=== PATIENT | male | born 1990 | race Caucasian/White ===

== ENCOUNTER 2018-10-21 18:23 | Emergency (ER) | payer MEDICAID ==
[~2018-10-21] VITALS: Ht 172.7 cm; Wt 97.0 kg
[~2018-10-21 18:23] MED LIST: ADV50250 IH; CLON-527 PO; GABA-338 PO; KEP500T PO; MIRT15TA PO; PALI6TAB3 PO
[2018-10-21 18:26] VITALS: BP 154/100
[2018-10-21] MEDS ORDERED: albuterol 2.5 MG/3 ML nebule NEB ONE (19:15)
[2018-10-21] MEDS ORDERED: ipratropium/albuterol 3ml nebule NEB ONE (19:15)
--- NOTE | 2018-10-21 19:15 | NUR ---
PAGE SENT TO RT AT THIS TIME.
[2018-10-21] MEDS ORDERED: albuterol 2.5 MG/3 ML nebule ONE (19:24)
--- NOTE | 2018-10-21 19:25 | NUR ---
CALL TO INITIATE PSYCH CONSULT AT THIS TIME.
[2018-10-21 19:26] LABS: BASOPHILS % (AUTO) 0.3 % (0-1); EOSINOPHILS # (AUTO) 0.1 X10'3 (0-0.9); EOSINOPHILS % (AUTO) 0.9 % (0-6); HEMATOCRIT 41.8 % (42.0-52.0); HEMOGLOBIN 14.2 g/dl (14.0-17.9); LYMPHOCYTES % (AUTO) 21.2 % (21-51); MEAN CORPUSCULAR HEMOGLOBIN 31.5 PG (27.0-31.0); MEAN CORPUSCULAR HGB CONC 33.9 % (33.0-36.5); MEAN PLATELET VOLUME 9.5 FL (7.4-10.4); MONOCYTES # (AUTO) 0.8 X10'3 (0-0.9); MONOCYTES % (AUTO) 8.6 % (2-12); NEUTROPHILS # (AUTO) 6.5 X10'3 (1.8-7.7); PLATELET COUNT 288 X10'3 (140-440); RED CELL DISTRIBUTION WIDTH 12.7 % (11.5-14.5); WHITE BLOOD COUNT 9.4 X10'3 (4.5-11.0)
[2018-10-21] MEDS ORDERED: predniSONE 20 mg tablet PO ONE (19:35)
[2018-10-21 19:43] LABS: ALANINE AMINOTRANSFERASE 31 U/L (12-78); ALBUMIN 3.5 G/DL (3.4-5.0); ALBUMIN/GLOBULIN RATIO 1.1 (1.1-1.5); ALKALINE PHOSPHATASE 95 IU/L (46-116); ANION GAP 9 (8-16); ASPARTATE AMINO TRANSFERASE 17 U/L (10-37); BILIRUBIN,TOTAL 0.7 MG/DL (0.1-1.0); BLOOD UREA NITROGEN 10 MG/DL (7-18); BUN/CREATININE RATIO 10.4 (5.4-32.0); CALCIUM 8.3 MG/DL (8.5-10.1); CHLORIDE 105 MMOL/L (99-107); CREATININE 0.96 MG/DL (0.60-1.10); GLUCOSE 153 MG/DL (70-104); POTASSIUM 3.6 MMOL/L (3.5-5.1); SODIUM 144 MMOL/L (135-145); TOTAL CARBON DIOXIDE 29.6 MMOL/L (24-32); TOTAL PROTEIN 6.8 G/DL (6.4-8.2); eGFR > 90 ML/MIN
[2018-10-21 19:45] LABS: URINE AMPHETAMINE SCREEN POSITIVE (Neg); URINE BARBITUATE SCREEN NEGATIVE (Neg); URINE BENZODIAZEPINES SCREEN NEGATIVE (Neg); URINE CANNABINOID SCREEN POSITIVE (Neg); URINE COCAINE SCREEN NEGATIVE (Neg); URINE METHADONE SCREEN NEGATIVE (Neg); URINE OPIATE SCREEN NEGATIVE (Neg); URINE PHENCYCLIDINE SCREEN NEGATIVE (Neg)
[2018-10-21 19:53] LABS: ETHANOL < 0.010 GM/DL (0.0-0.010)
--- NOTE | 2018-10-22 00:03 | NUR ---
call from telepsych md for pt. report. tele in room, pt. waiting for interview.
--- NOTE | 2018-10-22 00:39 | NUR ---
Telepsyche , Dr Zuleta recommendation to DC pt. d/t he believes he is malingering. will send report.
[2018-10-22] MEDS ORDERED: predniSONE 20 mg tablet PO SCH (07:00)
== END 2018-10-22 01:35 ==
LOC: ER 18:25
DX: R45.851 Suicidal ideations (principal); J45.901 Unspecified asthma with (acute) exacerbation; F15.10 Other stimulant abuse, uncomplicated; F32.9 Major depressive disorder, single episode, unspecified; F17.200 Nicotine dependence, unspecified, uncomplicated; Z88.1 Allergy status to other antibiotic agents; Z88.2 Allergy status to sulfonamides; Z88.0 Allergy status to penicillin; Z88.6 Allergy status to analgesic agent; Z88.8 Allergy status to other drugs, medicaments and biological substances; Z79.899 Other long term (current) drug therapy; Z59.0 Homelessness; Z56.0 Unemployment, unspecified
CPT/HCPCS: 36415; 71045; 80053; 80305; 80320; 84443; 85025; 94640; 94760; 99285; J7512

== ENCOUNTER 2019-03-29 17:19 | Emergency (ER) | payer MEDICAID, OTHER ==
[~2019-03-29] VITALS: Ht 172.7 cm; Wt 92.7 kg
--- NOTE | 2019-03-29 19:00 | NUR ---
Pt was placed on a 5150 on 03/29/19 by [facility]. Pt reports he was homeless living in [facility], when 3 weeks ago he came to [place] to visit his father who is also homeless. They had been sleeping in [facility] and were getting into aruements. His father called the sales correspondence clerk and accused him of stealing a phone. Pt began having homicidal ideations about killing his father along with suicidal ideations. The sales correspondence clerk came and dismissed the situation between the father and pt, and pt decided to walk from [place] to [place] and presnt to [facility] to seek help. He reports he has been off of his medications since 03/22/19. He reports that he cannot get his medications here because his SSI has not been transfered to this [facility]. Pt states he is still having homical ideations towards his father with a plan. "I was going to choke him to and break his neck." "I am just laying here thinking of all the different ways I could choke him." PT states he is still feeling suicidal but has no plan.
[2019-03-29 19:16] LABS: CLARITY,URINE SLIGHTLY CLOUDY (Clear); GLUCOSE, URINE NEGATIVE (Neg); KETONES,URINE >=80 mg/dl (Neg); LEUKOCYTE ESTERASE ,URINE NEGATIVE (Neg); NITRITES, URINE NEGATIVE (Neg); OCCULT BLOOD,URINE NEGATIVE (Neg); PROTEIN,URINE 100 mg/dl (Neg)
[2019-03-29 19:20] LABS: COLOR,URINE DARK YELLOW (Yellow); UA COLLECTION TYPE NON-SPECIFIED
[2019-03-29 19:21] LABS: BASOPHILS % (AUTO) 0.2 % (0-1); EOSINOPHILS % (AUTO) 0.1 % (0-6); HEMATOCRIT 41.8 % (42.0-52.0); HEMOGLOBIN 14.1 g/dl (14.0-17.9); LYMPHOCYTES # (AUTO) 1.4 X10'3 (1.1-4.8); MEAN CORPUSCULAR HEMOGLOBIN 31.6 PG (27.0-31.0); MEAN CORPUSCULAR HGB CONC 33.8 g/dL (33.0-36.5); MEAN CORPUSCULAR VOLUME 93.6 FL (78-98); MEAN PLATELET VOLUME 10.5 FL (7.4-10.4); MONOCYTES # (AUTO) 0.9 X10'3 (0-0.9); MONOCYTES % (AUTO) 8.3 % (2-12); NEUTROPHILS % (AUTO) 79.4 % (42-75); PLATELET COUNT 227 X10'3 (140-440); RED BLOOD COUNT 4.46 X10'6 (4.70-6.10); RED CELL DISTRIBUTION WIDTH 12.8 % (11.5-14.5); WHITE BLOOD COUNT 11.4 X10'3 (4.5-11.0)
[2019-03-29 19:23] LABS: URINE AMPHETAMINE SCREEN NEGATIVE (Neg); URINE BARBITUATE SCREEN NEGATIVE (Neg); URINE BENZODIAZEPINES SCREEN NEGATIVE (Neg); URINE CANNABINOID SCREEN POSITIVE (Neg); URINE COCAINE SCREEN NEGATIVE (Neg); URINE METHADONE SCREEN NEGATIVE (Neg); URINE OPIATE SCREEN NEGATIVE (Neg); URINE PHENCYCLIDINE SCREEN NEGATIVE (Neg)
[2019-03-29 19:36] LABS: MUCUS STRANDS MANY /LPF (Neg); SQUAMOUS EPITHELIAL CELL,UR MANY /LPF (FEW)
[2019-03-29 19:36] LABS: ALANINE AMINOTRANSFERASE 21 U/L (12-78); ALBUMIN 3.8 G/DL (3.4-5.0); ALBUMIN/GLOBULIN RATIO 1.2 (1.1-1.5); ALKALINE PHOSPHATASE 94 IU/L (46-116); ANION GAP 7 (8-16); ASPARTATE AMINO TRANSFERASE 13 U/L (10-37); BILIRUBIN,TOTAL 0.7 MG/DL (0.1-1.0); BLOOD UREA NITROGEN 13 MG/DL (7-18); BUN/CREATININE RATIO 12.5 (5.4-32.0); CHLORIDE 106 MMOL/L (99-107); CREATININE 1.04 MG/DL (0.60-1.10); ETHANOL < 0.010 GM/DL (0.0-0.010); GLUCOSE 112 MG/DL (70-104); SODIUM 140 MMOL/L (135-145); TOTAL CARBON DIOXIDE 26.6 MMOL/L (24-32); TOTAL PROTEIN 6.9 G/DL (6.4-8.2); eGFR 84 ML/MIN
[2019-03-29 19:37] LABS: BACTERIA,URINE 2+ /HPF (Neg); RBC,URINE 0-2 /HPF (0-2); WBC,URINE 0-4 /HPF (0-4)
[2019-03-29] MEDS ORDERED: VENL150C2 PO (20:25)
[2019-03-29] MEDS ORDERED: CARI3CAP PO (20:25)
[2019-03-29] MEDS ORDERED: GABA-532 PO (20:25)
[2019-03-29] MEDS ORDERED: ESZO3TAB66 PO (20:25)
[2019-03-29] MEDS ORDERED: CLON-527 PO (20:25)
--- NOTE | 2019-03-29 21:30 | NUR ---
Karissa report given to [facility] department due to homicidal ideation with a plan.
--- NOTE | 2019-03-30 | NUR ---
Pt is sleepin in bed breaths even and unlabored.
--- NOTE | 2019-03-30 02:00 | NUR ---
Pt is asleep on back, breathing unlabored, no signs or symptoms of distress observed.
--- NOTE | 2019-03-30 04:00 | NUR ---
Pt is resting quietly on L side, no signs or syptoms of distress at this time.
[2019-03-30 05:46] VITALS: BP 106/63
--- NOTE | 2019-03-30 06:35 | NUR ---
Patient sleeping supine. No distress observed. Continue to monitor.
--- NOTE | 2019-03-30 08:05 | NUR ---
Patient eating. No distress observed. Continue to monitor.
--- NOTE | 2019-03-30 10:00 | NUR ---
Patient awake and reclining in bed. No distress observed. Continue to monitor.
--- NOTE | 2019-03-30 12:43 | NUR ---
Patient sitting up in bed. No distress observed. Continue to monitor.
--- NOTE | 2019-03-30 13:14 | NUR ---
pt is being visited by registration, he is calm and cooperative with them
[2019-04-05] MEDS ORDERED: VENL75CA61 PO (11:31)
[2019-04-05] MEDS ORDERED: BUS15T PO (11:31)
[2019-04-05] MEDS ORDERED: MIRT15TA8 PO (11:31)
[2019-04-05] MEDS ORDERED: GABA300C PO (11:31)
== END 2019-03-30 13:31 | disposition home or self-care (01) ==
LOC: ER 17:20
DX: R45.851 Suicidal ideations (principal); R45.850 Homicidal ideations; J45.909 Unspecified asthma, uncomplicated; F31.9 Bipolar disorder, unspecified; F15.90 Other stimulant use, unspecified, uncomplicated; F17.200 Nicotine dependence, unspecified, uncomplicated; Z98.890 Other specified postprocedural states; Z59.0 Homelessness; Z56.0 Unemployment, unspecified; Z88.1 Allergy status to other antibiotic agents; Z88.2 Allergy status to sulfonamides; Z88.0 Allergy status to penicillin; Z88.6 Allergy status to analgesic agent; Z88.8 Allergy status to other drugs, medicaments and biological substances; Z79.899 Other long term (current) drug therapy
CPT/HCPCS: 36415; 80053; 80305; 80320; 81001; 85025; 99283; 99285

== ENCOUNTER 2019-04-08 20:46 | Emergency (ER) | payer OTHER ==
[~2019-04-08] VITALS: Ht 172.7 cm; Wt 85.0 kg
[~2019-04-08 20:46] MED LIST changes: -ADV50250 IH; +BUS15T PO; -CLON-527 PO; -GABA-338 PO; +GABA300C PO; -KEP500T PO; -MIRT15TA PO; +MIRT15TA8 PO; -PALI6TAB3 PO; +VENL150C2 PO; +VENL75CA61 PO
--- NOTE | 2019-04-08 21:45 | NUR ---
The patient is a 28 year old male who was brought in by [place] [employer] for a mental health evaluation as a voluntary patient. The patient had been picked up at the [facility] where he was been camping with his father who is also homeless. He and his father had been fighting and the patient made suicidal statements to run into traffic. The patient presented to the ER cooperative but tearful and upset. He denies drug or etoh abuse. The patient was discharged from [facility] on the and he reports he went to pick remover his medications at [facility] but was told his medical was no longer active. He reports he is having frequent auditory hallucinations that are laughing at him, making derogatory statements and telling him to kill himself. The patient's discharge diagnosis was bipolar 1 disorder, depressed, severe and OMER. The patient reports he receives SSI. He denies HI. [facility] made aware that he is in the ER
[2019-04-08] MEDS ORDERED: LORazepam 1 MG tablet PO ONE (21:55)
[2019-04-08 22:09] LABS: CLARITY,URINE CLEAR (Clear); COLOR,URINE YELLOW (Yellow); GLUCOSE, URINE NEGATIVE (Neg); KETONES,URINE TRACE mg/dl (Neg); LEUKOCYTE ESTERASE ,URINE NEGATIVE (Neg); NITRITES, URINE NEGATIVE (Neg); OCCULT BLOOD,URINE NEGATIVE (Neg); PH,URINE 5.5 (4.8-8.0); PROTEIN,URINE NEGATIVE (Neg); UROBILINOGEN,URINE 0.2 E.U/dL (0.2-1.0)
[2019-04-08 22:13] LABS: BASOPHILS % (AUTO) 0.1 % (0-1); EOSINOPHILS % (AUTO) 0 % (0-6); HEMATOCRIT 40.6 % (42.0-52.0); HEMOGLOBIN 13.6 g/dl (14.0-17.9); LYMPHOCYTES # (AUTO) 1.5 X10'3 (1.1-4.8); LYMPHOCYTES % (AUTO) 13.3 % (21-51); MEAN CORPUSCULAR HEMOGLOBIN 31.7 PG (27.0-31.0); MEAN CORPUSCULAR HGB CONC 33.5 g/dL (33.0-36.5); MEAN CORPUSCULAR VOLUME 94.8 FL (78-98); MEAN PLATELET VOLUME 10.1 FL (7.4-10.4); MONOCYTES # (AUTO) 1.1 X10'3 (0-0.9); NEUTROPHILS # (AUTO) 8.5 X10'3 (1.8-7.7); NEUTROPHILS % (AUTO) 76.6 % (42-75); PLATELET COUNT 220 X10'3 (140-440); RED BLOOD COUNT 4.29 X10'6 (4.70-6.10); RED CELL DISTRIBUTION WIDTH 12.7 % (11.5-14.5); WHITE BLOOD COUNT 11.1 X10'3 (4.5-11.0)
[2019-04-08 22:14] LABS: UA COLLECTION TYPE VOIDED
[2019-04-08 22:21] LABS: URINE AMPHETAMINE SCREEN NEGATIVE (Neg); URINE BARBITUATE SCREEN NEGATIVE (Neg); URINE BENZODIAZEPINES SCREEN NEGATIVE (Neg); URINE CANNABINOID SCREEN POSITIVE (Neg); URINE COCAINE SCREEN NEGATIVE (Neg); URINE METHADONE SCREEN NEGATIVE (Neg); URINE OPIATE SCREEN NEGATIVE (Neg); URINE PHENCYCLIDINE SCREEN NEGATIVE (Neg)
[2019-04-08 22:34] LABS: ALANINE AMINOTRANSFERASE 22 U/L (12-78); ALBUMIN 3.4 G/DL (3.4-5.0); ALBUMIN/GLOBULIN RATIO 1.1 (1.1-1.5); ALKALINE PHOSPHATASE 94 IU/L (46-116); ANION GAP 7 (8-16); ASPARTATE AMINO TRANSFERASE 12 U/L (10-37); BILIRUBIN,TOTAL 0.3 MG/DL (0.1-1.0); BLOOD UREA NITROGEN 15 MG/DL (7-18); CALCIUM 8.4 MG/DL (8.5-10.1); CHLORIDE 109 MMOL/L (99-107); CREATININE 0.75 MG/DL (0.60-1.10); GLUCOSE 96 MG/DL (70-104); POTASSIUM 3.9 MMOL/L (3.5-5.1); SODIUM 144 MMOL/L (135-145); TOTAL CARBON DIOXIDE 28.1 MMOL/L (24-32); TOTAL PROTEIN 6.4 G/DL (6.4-8.2); eGFR > 90 ML/MIN
[2019-04-08 22:45] LABS: ETHANOL < 0.010 GM/DL (0.0-0.010)
--- NOTE | 2019-04-08 23:36 | NUR ---
The patient appears to be asleep
--- NOTE | 2019-04-09 01:04 | NUR ---
The patient appears to be asleep
--- NOTE | 2019-04-09 03:04 | NUR ---
The patient appears to be asleep
[2019-04-09] MEDS ORDERED: VENL75TA90 PO (09:40)
[2019-04-09] MEDS ORDERED: BUSP15TA12 PO (09:42)
[2019-04-09] MEDS ORDERED: GABA-532 PO (09:45)
[2019-04-09] MEDS ORDERED: MIRT-66 PO (09:46)
[2019-04-09] MEDS: busPIRone 15mg tablet PO SCH ×2 (13:14→20:18)
[2019-04-09] MEDS: gabapentin 300mg capsule PO SCH ×2 (13:14→20:18)
--- NOTE | 2019-04-09 18:30 | NUR ---
Assumed care of pt., he is sitting up eating dinner at this time. Appears calm and rr/even and unlabored.
[2019-04-09] MEDS: mirtazapine 15mg tablet PO SCH (20:18)
--- NOTE | 2019-04-09 20:30 | NUR ---
Pt. compliant with all medications, presents as depressed with flat affect. He continues to report S/I with a plan to jump in front of traffic. He also reports command A/H that tell him to kill himself which have gotten worse since he had not been taking his medications. Pt. states when he left [facility], he went to [facility] to have his prescriptions filled, however he was told that his Medi-Zack was not active so he was unable to obtain his medications. Pt. went back to live with his dad in [facility], however his dad left and he is now homeless again. Pt. does not know where his father is, states, "I walked out of the shower and the trailer was gone." He plans to possibly go live with his mother in [place].
--- NOTE | 2019-04-09 21:21 | NUR ---
Obtained new order from YOLANDA Freeman for [facility] consult. Per pt. when he went to poultry picker his medications at [facility] upon recent D/C from [facility], he was told that his Medical is inactive and was unable to obtain medications. Addendum: 04/10/19 at 0026 by HUI Elisha
--- NOTE | 2019-04-09 22:45 | NUR ---
Pt. sleeping at this time, laying on rt side, appears to be resting comfortably.
--- NOTE | 2019-04-10 00:37 | NUR ---
Pt. continues to sleep, laying on his left side at this time, rr even and unlabored.
--- NOTE | 2019-04-10 02:33 | NUR ---
Pt. sleeping on his left side, will continue to monitor.
--- NOTE | 2019-04-10 04:32 | NUR ---
Pt. sleeping on rt. side, rr even and ulabored.
--- NOTE | 2019-04-10 06:01 | NUR ---
Pt. continues to sleep, appears to be resting comfortably, will continue to monitor.
--- NOTE | 2019-04-10 06:31 | NUR ---
Assumed care of client. Client aslepp on right side. Respirations regular and in no apparent distress.
[2019-04-10] MEDS: gabapentin 300mg capsule PO SCH ×3 (08:21→20:05)
[2019-04-10] MEDS: venlafaxine XR 75mg capsule (Q24H) PO SCH (08:21)
[2019-04-10] MEDS: busPIRone 15mg tablet PO SCH ×3 (08:21→20:05)
--- NOTE | 2019-04-10 08:31 | NUR ---
Patient is awake and is eating breakfast
--- NOTE | 2019-04-10 08:36 | NUR ---
Patient up to bathroom
--- NOTE | 2019-04-10 09:55 | NUR ---
Client asleep on right side in no apparent distress. Respirations are even and unlabored.
--- NOTE | 2019-04-10 10:25 | NUR ---
Patient up to the bathroom to brush his teeth.
--- NOTE | 2019-04-10 11:49 | NUR ---
Patient is lying on his back and is awake.
--- NOTE | 2019-04-10 13:18 | NUR ---
Client up in bed eating lunch
--- NOTE | 2019-04-10 13:51 | NUR ---
Pt up to the restroom
--- NOTE | 2019-04-10 16:29 | NUR ---
Pt awake and reading
--- NOTE | 2019-04-10 17:54 | NUR ---
Pt awake and sitting up in bed with his arms crossed.
[2019-04-10] MEDS: mirtazapine 15mg tablet PO SCH (20:05)
[2019-04-11 07:14] VITALS: BP 120/79
[2019-04-11] MEDS: gabapentin 300mg capsule PO SCH ×2 (08:02→12:29)
[2019-04-11] MEDS: venlafaxine XR 75mg capsule (Q24H) PO SCH (08:02)
[2019-04-11] MEDS: busPIRone 15mg tablet PO SCH ×2 (08:02→12:29)
--- NOTE | 2019-04-11 09:00 | NUR ---
Pt lying in bed. Up for breakfast and bathroom. Pt calm and interactive.
--- NOTE | 2019-04-11 09:00 | NUR ---
Note arline in EDM - 04/11/19 at 0908 by DAYRON Pt lying in bed with eyes closed. Pt in no distress. When questioned, pt stated he continues to have S.I. and H.I. and is experiencing aud. castellanos telling him so. Pt says he feels safe at the moment.
--- NOTE | 2019-04-11 11:00 | NUR ---
Pt resting quietly in bed after talking with mother for awhile. Pt voices desire to get placement somewhere. Preferably [facility].
--- NOTE | 2019-04-11 13:00 | NUR ---
Pt is upset that he has not been seen and that placement has not been found yet.
--- NOTE | 2019-04-11 15:00 | NUR ---
Pt was seen briefly by [facility] and that he will be reevaluated tomorrow when his 72 hour hold is . Pt having intermittent flare ups of agitation.
--- NOTE | 2019-04-11 16:55 | NUR ---
Pt became verbally agitated and hostile toward staff, but was able to calm himself once left alone and limits were set. Pt seen again by [facility] and it was determined that he did not meet 5150 criteria.
== END 2019-04-11 17:12 ==
LOC: ER 20:46
DX: F32.9 Major depressive disorder, single episode, unspecified (principal); J45.909 Unspecified asthma, uncomplicated; F41.9 Anxiety disorder, unspecified; F12.90 Cannabis use, unspecified, uncomplicated; F15.90 Other stimulant use, unspecified, uncomplicated; Z86.69 Personal history of other diseases of the nervous system and sense organs; Z98.890 Other specified postprocedural states; Z56.0 Unemployment, unspecified; Z59.0 Homelessness; Z88.2 Allergy status to sulfonamides; Z88.8 Allergy status to other drugs, medicaments and biological substances; Z88.1 Allergy status to other antibiotic agents; Z88.6 Allergy status to analgesic agent
CPT/HCPCS: 36415; 80053; 80305; 80320; 81003; 84443; 85025; 99285